=== PATIENT | female | born 1955 | race Caucasian/White ===

== ENCOUNTER 2020-03-18 13:34 | Emergency (ER) | payer MEDICARE, OTHER ==
[~2020-03-18] VITALS: Ht 154.9 cm; Wt 62.7 kg
[~2020-03-18 13:34] MED LIST: ALTACE2.5 MG PO; ANTIVERT 25MG25 MG PO; ASPIR-LOW81 MG PO; ASPIR-LOX325 MG PO; ASPIRIN 81M81 MG/TA2 PO; ATIVAN 0.50.5 MG/TAB PO; ATIVAN 1MG T1 MG/TAB PO; ATIVAN0.5 MG PO; ATIVAN1 MG PO; BUSPAR10 MG PO; CARDIZEM CD180 MG PO; CELEBREX200 MG PO; COMPAZINE 110 MG/TAB PO; ESCITALOPRAM; FLEXERIL 1010 MG/TAB PO; LOPRESSOR 550 MG/TAB PO; LORTAB 5/500 501 TAB PO; NASACORT OTC NS; NASONEX SPRAY; NITROGLYCERIN0.6 MG SL; NITROSTAT0.4 MG/TAB SL; NO HOME MEDICATIONS; OXYGEN; PAXIL 30MG30 MG PEG; PERCOCET 325 MG1 TAB PO; PERFOROMIS20 MCG/2 M IH; PULMICORT180 MCG/A1 IH; RT ALBUTER2.5 MG/0.5 IH; RT SPIRIVA18 MCG IH; SEROQUEL; SEROQUEL 2525 MG/TAB PO; SINGULAIR; SPIRIVA HANDIH18 MCG IH; STOMACH MED; TRAZODO50 MG PO; XOPENEX0.63 MG/3 IH; ZOLOFT 100MG100 MG PO; [UNRECOGNIZED DRUG - OTHER]
[2020-03-18 13:44] VITALS: BP 106/71; TEMP 96.8
[2020-03-18] MEDS ORDERED: PERCOCET 325 MG1 TA2 PO (14:42)
[2020-03-18 15:02] VITALS: PULSE 99
== END 2020-03-18 15:02 | disposition home or self-care (01) ==
LOC: COL.ER 13:34
DX: S42.201A Unspecified fracture of upper end of right humerus, initial encounter for closed fracture (principal); F17.200 Nicotine dependence, unspecified, uncomplicated; J43.9 Emphysema, unspecified; F41.9 Anxiety disorder, unspecified; Z79.82 Long term (current) use of aspirin; W01.0XXA Fall on same level from slipping, tripping and stumbling without subsequent striking against object, initial encounter; Y92.009 Unspecified place in unspecified non-institutional (private) residence as the place of occurrence of the external cause

== ENCOUNTER → 2023-08-29 | Outpatient (CLI) | payer MEDICARE ==
[~2023-08-29] MED LIST changes: +DECADRON6 MG PO; +DOXYCYCLINE HY100 MG PO; +LEVOXYL0.05 MG PO; +LYRICA 50MG CAP50 MG PO; +MIRAPEX 0.0.125 MG/T PO; +NEURONTIN100 MG/CAP PO; +NORVASC 5MG5 MG/TAB PO; +OXYGEN NASAL.CANN; +PERCOCET 325 MG1 TA2 PO; +PREDNISONE10 MG PO; +PROAIR HFA0.09 MG/AC IH; +RT SPIRIVA18 MCG PO; +TRELEGY ELLIPT1 EACH IH
== END ==
LOC: COL.LAB 14:24
DX: E55.9 Vitamin D deficiency, unspecified (principal)

== ENCOUNTER 2024-02-22 12:43 | Emergency (ER) | payer MEDICARE ==
[~2024-02-22] VITALS: Ht 149.9 cm; Wt 72.3 kg
[2024-02-22 12:46] VITALS: TEMP 98.7
[2024-02-22 13:38] LABS: BASO # 0.1 K/mm3 (0.0-0.2); BASO % 1.3 % (0.0-2.0); EOS # 0.2 K/mm3 (0.0-0.7); GRAN # 6.3 K/mm3 (1.4-6.5); GRAN % 81.1 % (42.2-75.2); HEMATOCRIT 40.2 % (37.0-47.0); HEMOGLOBIN 12.6 g/dl (12.5-16.0); LYMPH # 0.7 K/mm3 (1.2-3.4); LYMPH % 8.7 % (20.0-51.0); MEAN CELL VOLUME 78 fl (80.0-100.0); MEAN CORPUSCULAR HEMOGLOBIN 24 pg (27-31); MEAN CORPUSCULAR HGB CONC 31 g/dl (33.0-37.0); MONO # 0.5 K/mm3 (0.1-0.6); MONO % 6.3 % (1.7-9.3); PLATELET COUNT 271 K/mm3 (130-400); RED BLOOD COUNT 5.16 M/mm3 (4.10-5.30); REDCELL DISTRIBUTION WIDTH-CV 15.9 % (11.5-14.5)
[2024-02-22] MEDS ORDERED: NS 1,000 ML IV ONE (13:45)
[2024-02-22 14:01] LABS: ALANINE AMINOTRANSFERASE 13 U/L (0-55); ALBUMIN 4.2 g/dL (3.4-4.8); ALKALINE PHOSPHATASE 75 U/L (40-150); ANION GAP 13 mmol/L (7-16); AST,SGOT 14 U/L (5-34); BILIRUBIN,TOTAL 0.7 mg/dL (0.2-1.2); BLOOD UREA NITROGEN 12 mg/dL (10-20); CALCIUM 9.9 mg/dL (8.4-10.2); CHLORIDE 104 mEq/L (98-107); CREATININE, serum 0.81 mg/dL (0.57-1.11); GLUCOSE 108 mg/dL (70-99); POTASSIUM 3.8 mEq/L (3.5-4.5); SODIUM 141 mEq/L (136-145)
[2024-02-22 14:04] LABS: INR 1.1 (0.8-3.0); PROTHROMBIN TIME 12.1 SECONDS (9.7-12.8)
[2024-02-22 14:09] LABS: COLLECTION METHOD CLEAN CATCH
[2024-02-22 14:13] LABS: PH 6.5 (5.0-8.5); URINE APPEARANCE CLEAR (CLEAR/HAZY); URINE BLOOD NEGATIVE (NEGATIVE); URINE COLOR YELLOW (YELLOW); URINE GLUCOSE NEGATIVE (NEGATIVE); URINE KETONE NEGATIVE (NEGATIVE); URINE NITRATE NEGATIVE (NEGATIVE); URINE PROTEIN(semi-quant) NEGATIVE (NEGATIVE); URINE UROBILINOGEN 0.2 E.U/dL (0.2-1.0)
[2024-02-22 14:27] LABS: TROPONIN-I < 0.010 ng/mL (0.00-0.033)
[2024-02-22] MEDS ORDERED: Iohexol 300 - 100 ML VIAL IV ONE (15:00)
[2024-02-22] MEDS ORDERED: NS 100 ML IV SCH (15:01)
[2024-02-22] MEDS ORDERED: ZOFRAN ODT4 MG PO (16:12)
[2024-02-22 16:17] VITALS: BP 155/66; PULSE 81
== END 2024-02-22 16:24 | disposition home or self-care (01) ==
LOC: COL.ER 12:43
PROVIDERS: Physician Assistant
DX: R11.2 Nausea with vomiting, unspecified (principal); K21.9 Gastro-esophageal reflux disease without esophagitis; J44.9 Chronic obstructive pulmonary disease, unspecified; Z79.899 Other long term (current) drug therapy
CPT/HCPCS: J7030; Q9967